=== PATIENT | male | born 1995 | race Caucasian/White ===

== ENCOUNTER 2019-01-09 23:11 | Emergency (ER) | payer BC, MEDICARE ==
[~2019-01-09] VITALS: Ht 170.2 cm; Wt 84.9 kg
[~2019-01-09 23:11] MED LIST: IBUP-974 PO
[2019-01-09 23:30] VITALS: BP 126/68
--- NOTE | 2019-01-09 23:33 | NUR ---
TO LOBBY, VSS.
--- NOTE | 2019-01-10 00:24 | NUR ---
PT TAKEN TO BED 7
--- NOTE | 2019-01-10 00:25 | NUR ---
PATIENT PRESENTS TO ED WITH HEADACHE S/P MECHANICAL FALL X1 HR. NO LOC. DENIES N/V. REPORTS DRINKING 7 BEERS. PT HAS SMALL LACERATION ON TOP OF HEAD; AAOX4 WITH EVEN AND STEADY GAIT; LUNGS CLEAR BL; HR EVEN AND REGULAR; PT DENIES SOB, OR COUGH AT THIS TIME; PATIENT STATES PAIN OF 6/10 AT THIS TIME; VSS; PATIENT POSITIONED FOR COMFORT; HOB ELEVATED; BEDRAILS UP X2; BED DOWN. ER MD MADE AWARE OF PT STATUS.
--- NOTE | 2019-01-10 01:20 | NUR ---
PT RESTING IN BED. VSS. STILL AWAITING ER MD.
[2019-01-10 02:30] VITALS: BP 118/62
== END 2019-01-10 02:30 | disposition home or self-care (01) ==
LOC: MED 23:11
DX: S09.90XA Unspecified injury of head, initial encounter (principal); F10.129 Alcohol abuse with intoxication, unspecified; J45.909 Unspecified asthma, uncomplicated; Z79.899 Other long term (current) drug therapy; W19.XXXA Unspecified fall, initial encounter; Y93.89 Activity, other specified; Y92.89 Other specified places as the place of occurrence of the external cause; Y99.8 Other external cause status
CPT/HCPCS: 99283